=== PATIENT | female | born 1975 | race Hispanic/Latino ===

== ENCOUNTER 2017-04-25 21:36 | Emergency (ER) | payer OTHER, SELFPAY ==
[2017-04-25] MEDS ORDERED: Ketorolac Tromethamine 30 MG/ML VIAL ONE (23:12)
--- NOTE | 2017-04-25 23:17 | RAD ---
LEFT ANKLE THREE VIEWS: History: Left ankle pain, injury. FINDINGS/IMPRESSION: The ankle mortise is maintained. Soft tissue swelling is seen in the lateral aspect of the left ankl e. There is questionable tiny density adjacent to the lateral malleolus suspicious for an avulsion f racture. POS: [facility]
== END 2017-04-25 23:31 | disposition home or self-care (01) ==
LOC: ERS 21:36
DX: S93.402A Sprain of unspecified ligament of left ankle, initial encounter (principal); E11.9 Type 2 diabetes mellitus without complications; I10 Essential (primary) hypertension; Z79.2 Long term (current) use of antibiotics; Z79.899 Other long term (current) drug therapy; Z79.84 Long term (current) use of oral hypoglycemic drugs; X50.1XXA Overexertion from prolonged static or awkward postures, initial encounter
CPT/HCPCS: 96372; J1885

== ENCOUNTER 2018-06-13 19:23 | Emergency (ER) | payer SELFPAY ==
[2018-06-13 20:10] LABS: Bilirubin Negative (Negative); Blood, Urine Negative (Negative); Clarity CLEAR (Clear); Glucose, Urine (Dipstick) >=1000 mg/dL (Negative); Leukocyte Negative (Negative); Nitrite Negative (Negative); Protein, Urine (Dipstick) Negative (Neg-Trace); Specific Gravity, Urine 1.018 (1.002-1.036); Urobilinogen 0.2 mg/dL (0.2-1.0); pH, Urine 5.5 (5.0-9.0)
[2018-06-13 20:12] LABS: Pregnancy Test - Urine (BHCG) Negative (Negative); Pregu Control Background? CLEAR/WHITE (CLR/WHITE); Pregu Control Bar Appear? YES (CONTROL BAR); Specific Gravity 1.018 (1.002-1.036)
[2018-06-13] MEDS ORDERED: Ketorolac Tromethamine 30 MG/ML VIAL ONE (21:44)
== END 2018-06-13 22:32 | disposition home or self-care (01) ==
LOC: ERS 19:23
DX: S39.012A Strain of muscle, fascia and tendon of lower back, initial encounter (principal); E11.9 Type 2 diabetes mellitus without complications; I10 Essential (primary) hypertension; X58.XXXA Exposure to other specified factors, initial encounter
CPT/HCPCS: 36416; 81003; 81025; 96372; J1885

== ENCOUNTER 2022-09-16 20:25 | Emergency (ER) | payer OTHER, SELFPAY ==
[2022-09-16] MEDS ORDERED: Bacitracin 1 PK ONE (21:23)
[2022-09-16] MEDS ORDERED: HYDROcodone/Acetaminophen 10/325 mg Tablet ONE (21:23)
== END 2022-09-16 21:30 | disposition home or self-care (01) ==
LOC: ERS 20:25
DX: S93.505A Unspecified sprain of left lesser toe(s), initial encounter (principal); S80.02XA Contusion of left knee, initial encounter; W01.0XXA Fall on same level from slipping, tripping and stumbling without subsequent striking against object, initial encounter

== ENCOUNTER 2025-04-01 10:12 | Emergency (ER) | payer SELFPAY | END 2025-04-01 11:59 | LOC: ERS 10:12 | DX: R60.0 Localized edema (principal); E11.40 Type 2 diabetes mellitus with diabetic neuropathy, unspecified; I10 Essential (primary) hypertension; F17.290 Nicotine dependence, other tobacco product, uncomplicated ==